=== PATIENT | male | born 1985 | race Caucasian/White ===

== ENCOUNTER 2016-10-20 17:12 | Emergency (ER) | payer BC ==
[2016-10-20 19:05] LABS: HEMOGLOBIN 13.7 gm/dl (14.0-17.5); RED BLOOD COUNT 4.35 M/UL (4.20-5.50)
[2016-10-20 19:19] LABS: BUN/CREATININE RATIO 10 (0-10)
== END 2016-10-20 21:06 | disposition home or self-care (01) ==
LOC: ER1 17:12
PROVIDERS: Emergency Medicine
DX: R50.9 Fever, unspecified (principal); T14.8 Other injury of unspecified body region; R09.89 Other specified symptoms and signs involving the circulatory and respiratory systems; R05 Cough; W57.XXXA Bitten or stung by nonvenomous insect and other nonvenomous arthropods, initial encounter
CPT/HCPCS: 36415; 71020; 80053; 85025; 86618; 96374; 96375; 99283; J0696; J1885; J2405; J7030

== ENCOUNTER → 2021-08-31 | Outpatient (CLI) | payer BC | LOC: KOH-I 08:22 | DX: R74.8 Abnormal levels of other serum enzymes (principal); K76.0 Fatty (change of) liver, not elsewhere classified | CPT/HCPCS: 76705 ==